=== PATIENT | female | born 1955 | race Caucasian/White ===

== ENCOUNTER 2024-10-01 07:39 | Day surgery (SDC) | payer MEDICARE, MEDICAID, SELFPAY ==
[2024-09-28 11:31] VITALS: BMI 35.1
[2024-10-01] MEDS: LACTATED RINGERS 1000ML 1,000 ML 25 ML IV (08:03)
[2024-10-01 08:05] VITALS: BP 136/75; PULSE 61; RESP 18; TEMP 36.2; O2SAT 98
--- NOTE | 2024-10-01 08:29 | EXP.ANES.CKL ---
[facility] Disclaimer: The information contained in this section may have been updated after the patient was seen, as this information can be updated by other users. Medical History Broken femur Diabetes Sleep apnea Gastritis Hyperlipidemia Hiatal hernia Internal hemorrhoids Esophageal dysmotility Erosive esophagitis Diverticulosis Depression COPD (chronic obstructive pulmonary disease) Asthma Surgical History H/O neck surgery History of surgery History of Achilles tendon repair History of section Previous back surgery H/O: hysterectomy History of cholecystectomy History of repair of hiatal hernia History of appendectomy Family History Brother Esophageal cancer Sister Breast cancer Other Family history of exposure to Agent [place] Heart disease Social History Smoking Status: Never smoker alcohol intake: never substance use type: denies use current occupational status: disabled Travel in the last 8 weeks?: None Have you lived/traveled outside US in past 30 days?: No Contact w/someone who lives/traveled outside US past 30 days?: No Exposure to someone with infectious disease in past 14 days?: No Do you have a fever (greater than 100.4 F or 38 C)?: No Have you tested positive for COVID-19?: No Exposed to someone with COVID-19 in past 14 days?: No Do you have a sore throat?: No Do you have a cough?: No Do you have any weakness?: No Are you experiencing any nausea/vomitting?: No Do you have any diarrhea?: No Are you experiencing any unusual bleeding?: No Do you have any muscle aches/pain?: No Do you have any abdominal pain?: No Are you experiencing loss of taste or smell?: No [facility] Anesthesia Checklist Patient Identification Patient Identification: Arm Band Structural Data Admitted From: Home Planned Operative Procedure/s: Colonoscopy Consent for Planned Operative Procedure(s) Verified: Yes Verified Documents: Surgical Consent and History and Physical NPO Status Verified Time NPO: 05:00 (finished prep) Additional verifications Anesthesia Reactions: No Airway Assessment Mallampati Score:: Class II C-Spine Mobility Assessed: Yes TMJ Mobility Assessed: Yes Dentition: Good Dentition Neurological Assessment Level of Consciousness: Awake, Alert and Appropriate Anesthesia Plan Anesthesia Risk discussed: Yes Anesthesia Plan: Verified ASA Class: II Anesthesia Type: MAC
--- NOTE | 2024-10-01 08:46 | EXP.HP ---
History of Present Illness *Admission Date: 10/01/24 *Reason for visit:: Personal history of adenomatous colon polyps *History of present illness: Mrs. Soto is a 69-year-old female with a long history of reflux, nausea, belching, bloating and some dyspepsia. She is here to reestablish care and was last seen by Kelly HERNANDEZ in August 2023. The patient did have an EGD with [place] in June 2022 and had moderate esophageal dysmotility with cricopharyngeal spasm as well as bile reflux with linear reactive gastropathy. The esophagus was dilated to 20 mm with a TTS hydrostatic balloon. The patient was placed on Gimoti nasal spray taken 3 times daily and had near resolution of all of her symptoms. Unfortunately, she developed some increased depression and was started on Vraylar. She developed some tardive dyskinesia symptoms and was weaned off of Gimoti and stopped the Vraylar. Overall, the patient is doing well and reports regular bowel function but does have incomplete defecation. She does get some generalized abdominal discomfort. She continues to have some belching and bloating. She does get early satiety and nausea. She has some dysphagia. The patient also does have a personal history of adenomatous colon polyps. She had a colonoscopy in November 2018 and had 2 polyps (tubular adenoma x 1/hyperplastic polyp x 1) which were removed. She had some left-sided diverticulosis as well. [facility] Disclaimer: The information contained in this section may have been updated after the patient was seen, as this information can be updated by other users. Medical History Broken femur Diabetes Sleep apnea Gastritis Hyperlipidemia Hiatal hernia Internal hemorrhoids Esophageal dysmotility Erosive esophagitis Diverticulosis Depression COPD (chronic obstructive pulmonary disease) Asthma Surgical History H/O neck surgery History of surgery History of Achilles tendon repair History of section Previous back surgery H/O: hysterectomy History of cholecystectomy History of repair of hiatal hernia History of appendectomy Family History Brother Esophageal cancer Sister Breast cancer Other Family history of exposure to [employer] [place] Heart disease Social History Smoking Status: Never smoker alcohol intake: never substance use type: denies use current occupational status: disabled Travel in the last 8 weeks?: None Have you lived/traveled outside US in past 30 days?: No Contact w/someone who lives/traveled outside US past 30 days?: No Exposure to someone with infectious disease in past 14 days?: No Do you have a fever (greater than 100.4 F or 38 C)?: No Have you tested positive for COVID-19?: No Exposed to someone with COVID-19 in past 14 days?: No Do you have a sore throat?: No Do you have a cough?: No Do you have any weakness?: No Are you experiencing any nausea/vomitting?: No Do you have any diarrhea?: No Are you experiencing any unusual bleeding?: No Do you have any muscle aches/pain?: No Do you have any abdominal pain?: No Are you experiencing loss of taste or smell?: No Other Medical History Have you received the Pneumonia Vaccine: Yes Review of Systems Review of Systems Review of systems (narrative): Negative *Cardiovascular Comments: Negative *Gastrointestinal Comments: Negative *Genitourinary Comments: Negative *Musculoskeletal Comments: Negative *Neurologic Comments: Negative Meds Home Medications and Allergies Home Medications ?Medication ?Instructions ?Recorded ?Confirmed ?Type albuterol sulfate 90 mcg/actuation 1 inh inhalation Q4-6H PRN . 05/11/24 09/28/24 History breath activated powder inhaler atorvastatin 80 mg tablet 80 mg PO DAILY 05/11/24 09/28/24 History calcium 600 mg (as carbonate)-vit 1 tab PO BID 05/11/24 09/28/24 History D3 20 mcg (800 unit) chewable tablet (Caltrate plus D) calcium polycarbophil 625 mg 625 mg PO DAILY 05/11/24 09/28/24 History tablet (FiberCon) empagliflozin 25 mg tablet 25 mg PO DAILY 05/11/24 09/28/24 History (Jardiance) famotidine 20 mg tablet 20 mg PO DAILY 05/11/24 09/28/24 History fluoxetine 40 mg capsule 10 mg PO DAILY 05/11/24 09/28/24 History losartan 100 mg tablet 100 mg PO DAILY 05/11/24 09/28/24 History metformin 500 mg tablet 500 mg PO BID 05/11/24 09/28/24 History metoprolol succinate 50 mg 50 mg PO DAILY 05/11/24 09/28/24 History tablet,extended release 24 hr omeprazole 20 mg capsule,delayed 20 mg PO DAILY 05/11/24 09/28/24 History release ondansetron 4 mg disintegrating 4 mg PO Q8H PRN . 05/11/24 09/28/24 History tablet aspirin 81 mg tablet,delayed 81 mg PO DAILY 05/15/24 09/28/24 History release (Adult Low Dose Aspirin) baclofen 5 mg tablet 5 mg PO DAILY PRN . 05/15/24 09/28/24 History buspirone 10 mg tablet 10 mg PO BID 05/15/24 09/28/24 History dextromethorphan-guaifenesin 30 1 tab PO Q12H 05/15/24 09/28/24 History mg-600 mg tablet extended [id number] hr (Mucinex DM) hydrocodone 5 mg-acetaminophen 325 1 tab PO DAILY PRN . 05/15/24 09/28/24 History mg tablet memantine 10 mg tablet 10 mg PO HS 05/15/24 09/28/24 History modafinil 200 mg tablet 200 mg PO DAILY 05/15/24 09/28/24 History omega-3 fatty acids 1,000 mg 1,000 mg PO DAILY 05/15/24 09/28/24 History capsule solifenacin 10 mg tablet 10 mg PO DAILY 05/15/24 09/28/24 History vitamin B complex 1 tab PO DAILY 05/15/24 09/28/24 History donepezil 5 mg tablet 5 mg PO DAILY 09/28/24 09/28/24 History sodium,potassium,mag sulfates 17.5 See Rx Instructions PO .COMPLEX 09/28/24 Rx gram-3.13 gram-1.6 gram oral soln colonoscopy #354 mL (Suprep Bowel Prep Kit) New Prescriptions to Start Prescriptions: Allergies Allergy/AdvReac Type Severity Reaction Status Date / Time nitrofurantoin (From Allergy Rash Verified 10/01/24 08:04 Macrobid) ibuprofen AdvReac itch Verified 10/01/24 08:04 Exam Data for Last 24 hours Vital signs and Labs for Last 24 Hours: Temp Pulse Resp BP Pulse Ox O2 Del Method 97.2 F L 61 18 136/75 98 Room Air 10/01/24 08:05 10/01/24 08:05 10/01/24 08:05 10/01/24 08:05 10/01/24 08:05 10/01/24 08:05 I & O for Last 24 hours: Intake & Output 09/28/24 09/29/24 09/30/24 10/01/24 23:59 23:59 23:59 23:59 Weight 174 lb *Routine HEENT Exam Head: Present normocephalic Eye: Present EOMI and PERRL ENT: Present mucous membranes moist *Routine Neck Exam Neck: Present supple *Routine Respiratory Exam Respiratory: Present CTA bilaterally *Routine Cardiovascular Exam Cardiovascular: Present RRR *Routine Abdominal Exam Abdominal: Present soft and normoactive bowel sounds; Absent tenderness *Routine Rectal Exam Rectal:: deferred *Routine Genitalia Exam Genitalia:: deferred *Routine Extremities Exam Extremities: Absent cyanosis, clubbing or edema *Routine Skin Exam Skin: Present warm; Absent rash *Routine Neurological Exam Neurological: Present alert and oriented X3 Assessment and Plan *Assessment and plan (1) Personal history of adenomatous and serrated colon polyps: Status: Acute Category: Medical Code(s): Z86.0101 - Personal history of adenomatous and serrated colon polyps Plan A/P: 1. Personal history of adenomatous colon polyps is the preprocedural diagnosis. The patient will be anesthetized/sedated using MAC sedation. The patient has been seen and examined. Cardiac and lung assessment prior to the examination is stable. Proceed with planned surveillance colonoscopy.
--- NOTE | 2024-10-01 08:53 | HMH.PROCNOTE ---
[facility] Procedure Note Date: 10/01/24 Time: 09:09 Procedure Note:: Colonoscopy Procedure Report: Colonoscopy with cold snare polypectomy Endoscopist: Samuel Bailey II, MD Referring physician: Nichole Bansal MD [address] [place] [address] [address], [place] [address] Date of Procedure: October 01, 2024 Equipment: Olympus 190 variable stiffness pediatric colonoscope Sedation: MAC sedation Indication: Mrs. Soto is a 69-year-old female who is here for follow-up surveillance colonoscopy. The patient did have a colonoscopy in November 2018 and had 2 polyps (tubular adenoma x 1/hyperplastic polyp x 1). The patient was having symptoms of bloating, nausea and dyspepsia. Overall, she is doing well and reports no rectal bleeding, abdominal pain, weight loss or change in bowel habits. She reports no family history of colon cancer. Procedure: Prior to the procedure, a history and physical exam was performed, and patient's medications and allergies were reviewed. The risks, benefits and alternatives of the sedation and procedure were discussed with the patient. All questions were answered and informed consent was obtained. The patient was brought to the procedure room. Patient identification and proposed procedure were verified by the physician and the nurse. The patient was placed in a left lateral decubitus position and the scope was passed under direct vision. Throughout the procedure, the patient's blood pressure, pulse, and oxygen saturations were monitored continuously. The colonoscopy was accomplished without difficulty. The patient tolerated the procedure well. Findings: On digital rectal examination there was normal rectal tone. There were no external hemorrhoids. The colonoscope was introduced through the anal canal to the rectum and advanced to the cecum. The ileocecal valve and appendiceal orifice were identified. The scope was advanced a short distance into the ileum which appeared grossly normal. The scope was then withdrawn into the colon. The cecum, ascending and transverse colon and mucosa were grossly normal. There was a single 4 to 5 mm polyp in the descending colon removed via cold snare polypectomy. There were scattered diverticuli throughout the descending and sigmoid colon (LEFT colon). The rectum itself was normal. Upon retroflexion within the rectum there were grade 1-2 internal hemorrhoids. The preparation was excellent throughout with [place] Preparation Score of 9. The cecal time was 12 minutes. Impression: 1. Diminutive descending colon polyp 2. Mild left-sided diverticulosis 3. Grade 1-2 internal hemorrhoids Plan: I will follow-up the polyp histology and recommend repeat surveillance colonoscopy again in 7 years if the polyp is adenomatous. This will certainly be based upon her good health and desire to continue preventive surveillance.
[2024-10-01 09:12] VITALS: BP 95/47; PULSE 67; RESP 20; TEMP 36.2; O2SAT 94
[2024-10-01 09:22] VITALS: BP 96/49; PULSE 61; RESP 20; O2SAT 95
[2024-10-01 09:32] VITALS: BP 115/54; PULSE 67; RESP 20; O2SAT 97
[2024-10-01 09:42] VITALS: BP 134/76; PULSE 60; RESP 20; TEMP 36.2; O2SAT 96
[2024-10-01 16:00] LABS: POC Glucose,Bedside 143 (70-110)
== END 2024-10-01 10:02 | disposition home or self-care (01) ==
PROVIDERS: PCP Family Medicine; Visit Provider Internal Medicine Gastroenterology
PROC: 0DJD8ZZ Inspection of Lower Intestinal Tract, Via Natural or Artificial Opening Endoscopic (ICD-10-PCS; CPT 45378; principal; 2024-10-01 09:00)
DX: D12.4 Benign neoplasm of descending colon (principal); K57.30 Diverticulosis of large intestine without perforation or abscess without bleeding; K64.0 First degree hemorrhoids; K64.1 Second degree hemorrhoids; K21.9 Gastro-esophageal reflux disease without esophagitis; R14.2 Eructation; R14.0 Abdominal distension (gaseous); R10.13 Epigastric pain; E11.9 Type 2 diabetes mellitus without complications; J44.9 Chronic obstructive pulmonary disease, unspecified; E78.5 Hyperlipidemia, unspecified; Z79.899 Other long term (current) drug therapy; Z86.0101 Personal history of adenomatous and serrated colon polyps; Z79.84 Long term (current) use of oral hypoglycemic drugs; Z79.82 Long term (current) use of aspirin; Z88.8 Allergy status to other drugs, medicaments and biological substances; Z90.49 Acquired absence of other specified parts of digestive tract; Z80.0 Family history of malignant neoplasm of digestive organs
CPT/HCPCS: 45385; 82962; 88305; J7120